=== PATIENT | female | born 1955 | race Two or more races ===

== ENCOUNTER 2023-07-23 07:27 | Outpatient (CLI) | payer OTHER | END 2023-07-23 07:39 | disposition home or self-care (01) | LOC: TOM 07:27 | PROVIDERS: ATTEND Internal Medicine | DX: K57.92 Diverticulitis of intestine, part unspecified, without perforation or abscess without bleeding (principal) ==

== ENCOUNTER 2024-03-15 10:47 | Outpatient (CLI) | payer OTHER | END 2024-03-15 10:57 | disposition home or self-care (01) | LOC: RAD 10:47 | PROVIDERS: ATTEND Internal Medicine | DX: S89.92XA Unspecified injury of left lower leg, initial encounter (principal) ==

== ENCOUNTER 2024-10-30 11:22 | Outpatient (CLI) | payer OTHER | END 2024-10-30 11:34 | disposition home or self-care (01) | LOC: MAMO-SONO 11:22 | PROVIDERS: ATTEND Internal Medicine | DX: R10.84 Generalized abdominal pain (principal); N64.4 Mastodynia; I11.9 Hypertensive heart disease without heart failure ==

== ENCOUNTER 2025-01-30 08:35 | Outpatient (CLI) | payer OTHER | END 2025-01-30 08:36 | disposition home or self-care (01) | LOC: NUCLEAR 08:35 | PROVIDERS: ATTEND Internal Medicine | DX: I11.9 Hypertensive heart disease without heart failure (principal) ==

== ENCOUNTER 2025-01-31 07:47 | Outpatient (CLI) | payer OTHER | END 2025-01-31 07:48 | disposition home or self-care (01) | LOC: NUCLEAR 07:47 | PROVIDERS: ATTEND Internal Medicine | DX: I87.2 Venous insufficiency (chronic) (peripheral) (principal); I73.9 Peripheral vascular disease, unspecified ==

== ENCOUNTER 2025-02-01 07:58 | Outpatient (CLI) | payer OTHER | END 2025-02-01 08:00 | disposition home or self-care (01) | LOC: NUCLEAR 07:58 | PROVIDERS: ATTEND Internal Medicine | DX: I87.2 Venous insufficiency (chronic) (peripheral) (principal); I73.9 Peripheral vascular disease, unspecified ==

== ENCOUNTER 2025-06-08 11:19 | Outpatient (CLI) | payer OTHER | END 2025-06-08 11:20 | disposition home or self-care (01) | LOC: RAD 11:19 | PROVIDERS: ATTEND Internal Medicine | DX: S09.90XA Unspecified injury of head, initial encounter (principal); R41.82 Altered mental status, unspecified ==